=== PATIENT | female | born 1965 | race Caucasian/White ===

== ENCOUNTER 2017-04-14 11:04 | Emergency (ER) | payer BC ==
[~2017-04-14] VITALS: Ht 180.3 cm; Wt 114.5 kg
[2017-04-14] MEDS ORDERED: LEVOTAB10 (11:23)
[2017-04-14] MEDS ORDERED: OMEP40CA2 (11:23)
[2017-04-14] MEDS ORDERED: MONT10TA2 (11:23)
[2017-04-14] MEDS ORDERED: VITA400T2 PO (11:23)
[2017-04-14] MEDS ORDERED: VALS1TAB47 (11:23)
[2017-04-14] MEDS ORDERED: NADO20TA (11:23)
[2017-04-14] MEDS ORDERED: VITA10002 PO (11:23)
[2017-04-14] MEDS ORDERED: ATOR1TAB21 (11:23)
[2017-04-14 11:50] LABS: BASO % 0.6 % (0.0-1.0); EOS # 0.2 10^3/uL (0.0-0.50); EOS % 2.6 % (0.0-3.0); IMMATURE GRANULOCYTE % 0.4 % (0-0); LYMPH # 1.2 10^3/uL (1.5-4.5); MEAN CORPUSCULAR HEMOGLOBIN 26.7 pg (27.0-33.0); MEAN CORPUSCULAR HGB CONC 32.2 g/dl (32.0-36.5); MEAN CORPUSCULAR VOLUME 82.9 fl (80.0-96.0); MONO # 0.6 10^3/uL (0.0-0.8); MONO % 8.9 % (0.0-5.0); NEUTROPHILS # 4.9 10^3/uL (1.8-7.7); NEUTROPHILS % 70.5 % (36.0-66.0); PLATELET COUNT, AUTOMATED 335 10^3/uL (150-450); WHITE BLOOD COUNT 6.9 10^3/uL (4.0-10.0)
--- NOTE | 2017-04-14 12:08 | REP ---
Portable chest, 11:46 a.m., single AP view, patient sitting: Comparison is 03/26/2011. The lung weiss are clear. The cardiac size is normal. The larissa, mediastinum, and bony thorax are unremarkable. Impression: Negative portable chest. There is no interval change Signed by Alber Villanueva MD 04/14/2017 11:59 A
[2017-04-14 12:10] LABS: ANION GAP 7 MEQ/L (8-16); BLOOD UREA NITROGEN 11 MG/DL (7-18); CALCIUM LEVEL 8.8 MG/DL (8.5-10.1); CARBON DIOXIDE LEVEL 29 MEQ/L (21-32); CHLORIDE LEVEL 105 MEQ/L (98-107); CREATININE FOR GFR 0.77 MG/DL (0.55-1.02); GLOMERULAR FILTRATION RATE > 60.0 (>51); GLUCOSE, FASTING 102 MG/DL (70-105); POTASSIUM SERUM 3.9 MEQ/L (3.5-5.1); SODIUM LEVEL 141 MEQ/L (136-145)
[2017-04-14 14:01] VITALS: BP 152/66
--- NOTE | 2017-04-15 05:36 | ECGEPIP ---
Stationary ECG Study [facility] - ED Test Date: 2017-04-14 Pat Name: KARLO HUITRON Department: Room: - Gender: F Answering Service Operator: jose : 1965 Requested By: Alok Machado Order Number: [id number] Reading MD: Alok Martinez Measurements Intervals Omega Rate: 65 P: 30 IL: 192 QRS: 7 QRSD: 96 T: 10 QT: 415 QTc: 434 Interpretive Statements SINUS RHYTHM WITH FREQUENT VENTRICULAR PREMATURE COMPLEXES IN A BIGEMINAL PATTERN NO PRIORS Electronically Signed On 04-15-2017 5:36:30 EDT by Alok Martinez
== END 2017-04-14 14:06 | disposition home or self-care (01) ==
LOC: M ED 11:04
DX: I49.3 Ventricular premature depolarization (principal); T44.7X5A Adverse effect of beta-adrenoreceptor antagonists, initial encounter; I10 Essential (primary) hypertension; Y92.9 Unspecified place or not applicable; Y93.9 Activity, unspecified; Z79.899 Other long term (current) drug therapy; Z88.8 Allergy status to other drugs, medicaments and biological substances; Z88.6 Allergy status to analgesic agent

== ENCOUNTER → 2017-05-02 | Outpatient (CLI) | payer BC ==
[~2017-05-02] MED LIST: ATOR1TAB21; LEVOTAB10; MONT10TA2; NADO20TA; OMEP40CA2; VALS1TAB47; VITA10002 PO; VITA400T2 PO
== END ==
LOC: M LAB 12:05
PROVIDERS: ATTEND Internal Medicine Endocrinology, Diabetes & Metabolism
DX: E04.0 Nontoxic diffuse goiter (principal)

== ENCOUNTER → 2018-10-12 | Outpatient (CLI) | payer BC ==
[~2018-10-12] MED LIST changes: -ATOR1TAB21; +ATOR1TAB21 PO; +CVS400CA PO; +FAMO40TA3 PO; -LEVOTAB10; +LEVOTAB10 PO; +LOSA100T50 PO; -MONT10TA2; +MONT10TA2 PO; -OMEP40CA2; +OMEP40CA2 PO; +PREV4POW PO; -VALS1TAB47; +VALS1TAB67; +VITA500T3 PO
--- NOTE | 2018-10-12 11:26 | REP ---
RIGHT QUADRANT SONOGRAPHY: HISTORY: Right upper quadrant pain times 2 months. The patient status post cholecystectomy in 2010. Comparison sonography March 26, 2011. FINDINGS: Scanning through the right upper quadrant of the abdomen demonstrates increased hepatic sonography and decreased insonation consistent with fatty infiltration similar to the prior study. No focal liver lesion is seen. Gallbladder is surgically absent. No pancreatic abnormality is seen. Common bile duct is normal measuring 0.3 cm in greatest diameter. There is an extrarenal pelvis configuration to the right kidney which is unchanged from the 2011 study. No other abnormality. IMPRESSION: Status post cholecystectomy. Fatty infiltration of the liver. Otherwise negative. Electronically Signed by Destin Paige MD 10/12/2018 01:36 P
== END ==
LOC: M LRY 08:08
PROVIDERS: ATTEND Internal Medicine Gastroenterology
DX: K76.0 Fatty (change of) liver, not elsewhere classified (principal); Z90.49 Acquired absence of other specified parts of digestive tract

== ENCOUNTER 2018-11-02 09:53 | Day surgery (SDC) | payer BC ==
[~2018-11-02] VITALS: Ht 180.3 cm; Wt 111.0 kg
[~2018-11-02 09:53] MED LIST changes: +NS 1,000 ML IV ONE
[2018-11-02] MEDS ORDERED: PROPOFOL 200 MG/20 ML VIAL As Ordered ONE (11:46)
[2018-11-02] MEDS ORDERED: LIDOCAINE 2% INJ 100 MG/5 ML SDV (FOR ANES.) As Ordered ONE (11:47)
[2018-11-02] MEDS ORDERED: fentaNYL 100 MCG/2 ML INJECTION (J3010) As Ordered ONE (11:55)
--- NOTE | 2018-11-02 12:47 | ROOR ---
Patient Name: Mireya Chowdhury Procedure Date: 11/02/2018 11:53 AM Date of : 1965 Age: 53 Room: [facility] Gender: Female Note Status: Finalized Procedure: Upper GI endoscopy Indications: Abdominal pain in the right upper quadrant, Dyspepsia, Heartburn Providers: Luís Bland MD Referring MD: PATTI KIRAN Requesting Provider: Medicines: Monitored Anesthesia Care Complications: No immediate complications. Procedure: Pre-Anesthesia Assessment: - Prior to the procedure, a History and Physical was performed, and patient medications and allergies were reviewed. The patient is competent. The risks and benefits of the procedure and the sedation options and risks were discussed with the patient. All questions were answered and informed consent was obtained. Patient identification and proposed procedure were verified by the physician, the nurse and the anesthesiologist in the procedure room. Mental Status Examination: alert and oriented. Airway Examination: normal oropharyngeal airway and neck mobility. Respiratory Examination: clear to auscultation. CV Examination: normal. Prophylactic Antibiotics: The patient does not require prophylactic antibiotics. Prior Anticoagulants: The patient has taken no previous anticoagulant or antiplatelet agents. ASA Grade Assessment: II - A patient with mild systemic disease. After reviewing the risks and benefits, the patient was deemed in satisfactory condition to undergo the procedure. The anesthesia plan was to use moderate sedation / analgesia (conscious sedation). Immediately prior to administration of medications, the patient was re-assessed for adequacy to receive sedatives. The heart rate, respiratory rate, oxygen saturations, blood pressure, adequacy of pulmonary ventilation, and response to care were monitored throughout the procedure. The physical status of the patient was re-assessed after the procedure. The Endoscope was introduced through the mouth, and advanced to the second part of duodenum. The upper GI endoscopy was accomplished without difficulty. The patient tolerated the procedure well. Findings: The examined esophagus was normal. The Z-line was regular and was found 41 cm from the incisors. Patchy mild inflammation characterized by congestion (edema), erythema and granularity was found in the gastric antrum. Biopsies were taken with a cold forceps for Helicobacter pylori testing. Biopsies were taken with a cold forceps for histology. Verification of patient identification for the specimen was done by the physician and nurse using the patient's name, date and medical record number. Multiple 8 mm sessile polyps with no bleeding and no stigmata of recent bleeding were found in the gastric fundus and in the gastric body. Biopsies were taken with a cold forceps for histology. The duodenal bulb and second portion of the duodenum were normal. Biopsies for histology were taken with a cold forceps for evaluation of celiac disease. Impression: - Normal esophagus. - Z-line regular, 41 cm from the incisors. - Gastritis. Biopsied. - Multiple gastric polyps. Biopsied. - Normal duodenal bulb and second portion of the duodenum. Biopsied. Recommendation: - Patient has a contact number available for emergencies. The signs and symptoms of potential delayed complications were discussed with the patient. Return to normal activities tomorrow. Written discharge instructions were provided to the patient. - Resume previous diet. - Continue present medications. - Await pathology results. - Based on the biopsy results you will receive a phone call from GI clinic in 2-3 weeks to review the pathology results AND/OR your results will be faxed to your Primary care physician. - Return to primary care physician. Luís Bland MD Luís Bland MD 11/02/2018 12:46:58 PM Electronically signed by Luís Bland MD Number of Addenda: 0 Note Initiated On: 11/02/2018 11:53 AM Estimated Blood Loss: Estimated blood loss was minimal.
--- NOTE | 2018-11-02 12:49 | ROOR ---
Patient Name: Mireya Chowdhury Procedure Date: 11/02/2018 11:54 AM Date of : 1965 Age: 53 Room: [facility] Gender: Female Note Status: Finalized Procedure: Colonoscopy Indications: Screening for colorectal malignant neoplasm Providers: Luís Bland MD Referring MD: PATTI KIRAN Requesting Provider: Medicines: Monitored Anesthesia Care Complications: No immediate complications. Procedure: Pre-Anesthesia Assessment: - Prior to the procedure, a History and Physical was performed, and patient medications and allergies were reviewed. The patient is competent. The risks and benefits of the procedure and the sedation options and risks were discussed with the patient. All questions were answered and informed consent was obtained. Patient identification and proposed procedure were verified by the physician, the nurse and the anesthesiologist in the procedure room. Mental Status Examination: alert and oriented. Airway Examination: normal oropharyngeal airway and neck mobility. Respiratory Examination: clear to auscultation. CV Examination: normal. Prophylactic Antibiotics: The patient does not require prophylactic antibiotics. Prior Anticoagulants: The patient has taken no previous anticoagulant or antiplatelet agents. ASA Grade Assessment: II - A patient with mild systemic disease. After reviewing the risks and benefits, the patient was deemed in satisfactory condition to undergo the procedure. The anesthesia plan was to use monitored anesthesia care (MAC). Immediately prior to administration of medications, the patient was re-assessed for adequacy to receive sedatives. The heart rate, respiratory rate, oxygen saturations, blood pressure, adequacy of pulmonary ventilation, and response to care were monitored throughout the procedure. The physical status of the patient was re-assessed after the procedure. The Colonoscope was introduced through the anus and advanced to the terminal ileum, with identification of the appendiceal orifice and IC valve. The colonoscopy was performed without difficulty. The patient tolerated the procedure well. The quality of the bowel preparation was good. The terminal ileum, ileocecal valve, appendiceal orifice, and rectum were photographed. Scope insertion time was 4 minutes. Scope withdrawal time was 8 minutes. The total duration of the procedure was 12 minutes. Findings: The perianal and digital rectal examinations were normal. The terminal ileum appeared normal. Non-bleeding external and internal hemorrhoids were found during retroflexion. The hemorrhoids were medium-sized. No other significant abnormalities were identified in a careful examination of the remainder of the colon. Impression: - The examined portion of the ileum was normal. - Non-bleeding external and internal hemorrhoids. - No specimens collected. Recommendation: - Patient has a contact number available for emergencies. The signs and symptoms of potential delayed complications were discussed with the patient. Return to normal activities tomorrow. Written discharge instructions were provided to the patient. - Resume previous diet. - Continue present medications. - Repeat colonoscopy in 10 years for screening purposes. - Return to primary care physician. Luís Bland MD Luís Bland MD 11/02/2018 12:48:51 PM Electronically signed by Luís Bland MD Number of Addenda: 0 Note Initiated On: 11/02/2018 11:54 AM Estimated Blood Loss: Estimated blood loss: none.
[2018-11-02 13:00] VITALS: BP 125/66
== END 2018-11-02 13:29 | disposition home or self-care (01) ==
LOC: M OPP 09:53
PROVIDERS: ATTEND Internal Medicine Gastroenterology
DX: K64.8 Other hemorrhoids (principal); K29.70 Gastritis, unspecified, without bleeding; R10.11 Right upper quadrant pain; R10.13 Epigastric pain; R12 Heartburn; Z12.11 Encounter for screening for malignant neoplasm of colon
CPT/HCPCS: 43239; 45378; 88305; J3010

== ENCOUNTER → 2019-01-02 | Outpatient (CLI) | payer BC ==
[~2019-01-02] MED LIST changes: +LEVO75TA4 PO; -NS 1,000 ML IV ONE
[2019-01-02 20:21] LABS: FREE T4 1.07 NG/DL (0.76-1.46); THYROID STIMULATING HORMONE 0.611 uIU/ML (0.358-3.740)
== END ==
LOC: M LRY 15:36
PROVIDERS: ATTEND Internal Medicine Endocrinology, Diabetes & Metabolism
DX: E06.3 Autoimmune thyroiditis (principal)

== ENCOUNTER 2019-01-18 12:37 | Day surgery (SDC) | payer BC ==
[~2019-01-18] VITALS: Ht 180.3 cm; Wt 112.9 kg
[~2019-01-18 12:37] MED LIST changes: +CYAN100049 PO; +CYAN500T8 PO; +NS 1,000 ML IV ONE; -VITA10002 PO; -VITA500T3 PO
[2019-01-18] MEDS ORDERED: fentaNYL 100 MCG/2 ML INJECTION (J3010) As Ordered ONE (13:34)
[2019-01-18] MEDS ORDERED: LIDOCAINE 2% INJ 100 MG/5 ML SDV (FOR ANES.) As Ordered ONE (13:34)
[2019-01-18] MEDS ORDERED: PROPOFOL 200 MG/20 ML VIAL As Ordered ONE ×2 (13:34→14:18)
--- NOTE | 2019-01-18 14:41 | ROOR ---
Patient Name: Mireya Chowdhury Procedure Date: 01/18/2019 1:50 PM Date of : 1965 Age: 53 Room: [facility] Gender: Female Note Status: Finalized Procedure: Upper GI endoscopy Indications: Surveillance for malignancy due to personal history of premalignant condition, Follow-up of gastric polyps Providers: Luís Bland MD Referring MD: PATTI KIRAN Requesting Provider: Medicines: Monitored Anesthesia Care Complications: No immediate complications. Procedure: Pre-Anesthesia Assessment: - Prior to the procedure, a History and Physical was performed, and patient medications and allergies were reviewed. The patient is competent. The risks and benefits of the procedure and the sedation options and risks were discussed with the patient. All questions were answered and informed consent was obtained. Patient identification and proposed procedure were verified by the physician, the nurse and the anesthesiologist in the procedure room. Mental Status Examination: alert and oriented. Airway Examination: normal oropharyngeal airway and neck mobility. Respiratory Examination: clear to auscultation. CV Examination: normal. Prophylactic Antibiotics: The patient does not require prophylactic antibiotics. Prior Anticoagulants: The patient has taken no previous anticoagulant or antiplatelet agents. ASA Grade Assessment: II - A patient with mild systemic disease. After reviewing the risks and benefits, the patient was deemed in satisfactory condition to undergo the procedure. The anesthesia plan was to use monitored anesthesia care (MAC). Immediately prior to administration of medications, the patient was re-assessed for adequacy to receive sedatives. The heart rate, respiratory rate, oxygen saturations, blood pressure, adequacy of pulmonary ventilation, and response to care were monitored throughout the procedure. The physical status of the patient was re-assessed after the procedure. The Endoscope was introduced through the mouth, and advanced to the second part of duodenum. Findings: The examined esophagus was normal. Multiple 8 to 15 mm sessile polyps with no bleeding and no stigmata of recent bleeding were found in the gastric fundus, in the gastric body and in the gastric antrum. These polyps were removed with a cold snare. Resection and retrieval were complete. Verification of patient identification for the specimen was done by the physician and nurse using the patient's name, date and medical record number. Estimated blood loss was minimal. The duodenal bulb and second portion of the duodenum were normal. Impression: - Normal esophagus. - Multiple gastric polyps. Resected and retrieved. - Normal duodenal bulb and second portion of the duodenum. Recommendation: - Patient has a contact number available for emergencies. The signs and symptoms of potential delayed complications were discussed with the patient. Return to normal activities tomorrow. Written discharge instructions were provided to the patient. - Resume previous diet. - Continue present medications. - Await pathology results. - Repeat upper endoscopy for surveillance based on pathology results. - Telephone GI clinic for pathology results in 2 weeks. - Return to primary care physician. Luís Bland MD Luís Bland MD 01/18/2019 2:40:39 PM Electronically signed by Luís Bland MD Number of Addenda: 0 Note Initiated On: 01/18/2019 1:50 PM Estimated Blood Loss: Estimated blood loss was minimal.
[2019-01-18 15:00] VITALS: BP 135/89
== END 2019-01-18 15:00 | disposition home or self-care (01) ==
LOC: M OPP 12:37
PROVIDERS: ATTEND Internal Medicine Gastroenterology
DX: K31.7 Polyp of stomach and duodenum (principal); Z87.19 Personal history of other diseases of the digestive system
CPT/HCPCS: 43251; 88305; J3010

== ENCOUNTER → 2019-04-03 | Outpatient (CLI) | payer BC ==
[~2019-04-03] MED LIST changes: -NS 1,000 ML IV ONE
[2019-04-03 20:53] LABS: FREE T4 0.96 NG/DL (0.76-1.46); THYROID STIMULATING HORMONE 6.37 uIU/ML (0.358-3.740)
== END ==
LOC: M LRY 16:03
PROVIDERS: ATTEND Internal Medicine Endocrinology, Diabetes & Metabolism
DX: E06.3 Autoimmune thyroiditis (principal)

== ENCOUNTER → 2019-06-10 | Outpatient (CLI) | payer BC ==
[~2019-06-10] MED LIST changes: -OMEP40CA2 PO; +OMEP40CA97 PO
[2019-06-10 20:33] LABS: FREE T4 1.17 NG/DL (0.76-1.46); THYROID STIMULATING HORMONE 2.67 uIU/ML (0.358-3.740)
== END ==
LOC: M LRY 17:22
PROVIDERS: ATTEND Internal Medicine Endocrinology, Diabetes & Metabolism
DX: E06.3 Autoimmune thyroiditis (principal)

== ENCOUNTER → 2019-10-10 | Outpatient (CLI) | payer BC ==
[~2019-10-10] MED LIST changes: -MONT10TA2 PO; +MONT10TA4 PO
[2019-10-10 20:17] LABS: FREE T4 1.05 NG/DL (0.76-1.46); THYROID STIMULATING HORMONE 2.26 uIU/ML (0.358-3.740)
== END ==
LOC: M LRY 16:09
PROVIDERS: ATTEND Internal Medicine Endocrinology, Diabetes & Metabolism
DX: E06.3 Autoimmune thyroiditis (principal)

== ENCOUNTER → 2020-04-20 | Outpatient (CLI) | payer BC ==
[2020-04-20 20:14] LABS: FREE T4 1.06 NG/DL (0.76-1.46); RHEUMATOID FACTOR QUANT < 10.0 IU/ML (<15.0)
[2020-04-22 14:09] LABS: ANTINUCLEAR ANTIBODIES DIRECT Negative (Negative)
== END ==
LOC: M WUC 16:51
PROVIDERS: ATTEND Internal Medicine Endocrinology, Diabetes & Metabolism
DX: E06.3 Autoimmune thyroiditis (principal)

== ENCOUNTER → 2020-09-08 | Outpatient (CLI) | payer BC ==
[~2020-09-08] MED LIST changes: +CYAN500T14 PO; -CYAN500T8 PO; +MONT10TA10 PO; -MONT10TA4 PO
== END ==
LOC: M WUC 15:15
PROVIDERS: ATTEND Internal Medicine Endocrinology, Diabetes & Metabolism
DX: E06.3 Autoimmune thyroiditis (principal)

== ENCOUNTER 2020-12-16 17:04 | Emergency (ER) | payer OTHER, BC ==
[~2020-12-16] VITALS: Ht 182.9 cm; Wt 128.6 kg
[2020-12-16 17:04] VITALS: BP 165/81
--- NOTE | 2020-12-16 17:31 | REP ---
INDICATION: fall injury COMPARISON: None. TECHNIQUE: Three views right shoulder. FINDINGS: There is no evidence of acute fracture, dislocation, or intrinsic bone disease.There is mild spurring at the acromioclavicular joint. IMPRESSION: No fracture or dislocation. <Electronically signed by Alber Wilder > 12/16/20 [id number]
--- NOTE | 2020-12-16 17:34 | REP ---
INDICATION: fall injury. COMPARISON: None. TECHNIQUE: Four views right ribs. FINDINGS: The right ribs demonstrate no fracture or bone lesion. IMPRESSION: No evidence of right rib fracture. <Electronically signed by Alber Wilder > 12/16/20 1848
[2020-12-16] MEDS ORDERED: LIDOCAINE 5% (LIDODERM) PATCH TD ONE (17:55)
[2020-12-16] MEDS ORDERED: ACETAMINOPHEN 325 MG TAB PO ONE (17:55)
[2020-12-16] MEDS ORDERED: HYDR-3713 PO (18:16)
[2020-12-16] MEDS ORDERED: LIDO1PAD TOP (18:16)
[2020-12-16] MEDS ORDERED: **NOTE PATIENT COMMENT** MISC XX SCH (21:00)
== END 2020-12-16 18:30 | disposition home or self-care (01) ==
LOC: M ED 17:04
DX: S20.211A Contusion of right front wall of thorax, initial encounter (principal); M25.511 Pain in right shoulder; W10.1XXA Fall (on)(from) sidewalk curb, initial encounter; Y92.480 Sidewalk as the place of occurrence of the external cause; Y93.89 Activity, other specified; Y99.0 Civilian activity done for income or pay; I10 Essential (primary) hypertension; K21.9 Gastro-esophageal reflux disease without esophagitis; E03.9 Hypothyroidism, unspecified; Z88.8 Allergy status to other drugs, medicaments and biological substances; Z79.899 Other long term (current) drug therapy; Z79.890 Hormone replacement therapy

== ENCOUNTER → 2021-01-26 | Outpatient (REF) | payer BC ==
[~2021-01-26] MED LIST changes: +HYDR-3713 PO; +LIDO1PAD TOP; +OMEP40CA4 PO; -OMEP40CA97 PO
== END ==
LOC: M LAB REF 21:43
PROVIDERS: ATTEND Nurse Practitioner Family
DX: J02.9 Acute pharyngitis, unspecified (principal)

== ENCOUNTER → 2021-07-26 | Outpatient (CLI) | payer BC ==
[~2021-07-26] MED LIST changes: +LOSA100T45 PO; -LOSA100T50 PO; -MONT10TA10 PO; +MONT10TA97 PO
== END ==
LOC: M WHC 10:06
PROVIDERS: ATTEND Nurse Practitioner Adult Health
DX: Z12.31 Encounter for screening mammogram for malignant neoplasm of breast (principal)

== ENCOUNTER → 2021-09-08 | Outpatient (CLI) | payer BC | LOC: M LAB 17:51 | PROVIDERS: ATTEND Internal Medicine Endocrinology, Diabetes & Metabolism | DX: E06.3 Autoimmune thyroiditis (principal) ==

== ENCOUNTER → 2021-12-17 | Outpatient (CLI) | payer BC | LOC: M RAD 14:52 | PROVIDERS: ATTEND Physician Assistant | DX: R22.42 Localized swelling, mass and lump, left lower limb (principal) ==

== ENCOUNTER → 2022-01-31 | Outpatient (CLI) | payer BC | LOC: M WUC 15:50 | PROVIDERS: ATTEND Physician Assistant | DX: M54.12 Radiculopathy, cervical region (principal) ==

== ENCOUNTER → 2022-04-15 | Outpatient (CLI) | payer BC | LOC: M WUC 15:43 | PROVIDERS: ATTEND Internal Medicine Endocrinology, Diabetes & Metabolism | DX: E06.3 Autoimmune thyroiditis (principal) ==

== ENCOUNTER → 2022-08-08 | Outpatient (CLI) | payer BC | LOC: M WUC 10:50 | PROVIDERS: ATTEND Physician Assistant | DX: M17.11 Unilateral primary osteoarthritis, right knee (principal) ==

== ENCOUNTER → 2022-08-22 | Outpatient (CLI) | payer BC | LOC: M WHC 08:04 | PROVIDERS: ATTEND Nurse Practitioner Family | DX: Z12.31 Encounter for screening mammogram for malignant neoplasm of breast (principal); Z80.41 Family history of malignant neoplasm of ovary; Z80.3 Family history of malignant neoplasm of breast ==

== ENCOUNTER 2022-11-10 10:08 | Day surgery (SDC) | payer BC ==
[~2022-11-10] VITALS: Ht 180.3 cm; Wt 127.0 kg
[~2022-11-10 10:08] MED LIST changes: +B-12100010 PO; +CHOL4POW26 PO; +ESOM40CA35 PO; +LIVA4TAB PO; -LOSA100T45 PO; +LOSA100T46 PO; +NS 1,000 ML IV ONE; +SYNT112T2 PO; +VENTAER INH; +VITA100093 PO
[2022-11-10] MEDS ORDERED: propofoL 500 MG/50 ML VIAL As Ordered ONE (11:50)
[2022-11-10] MEDS ORDERED: fentaNYL 100 MCG/2 ML INJECTION As Ordered ONE (11:50)
[2022-11-10] MEDS ORDERED: LIDOCAINE 2% 100MG/5ML SDV (FOR ANES.) As Ordered ONE (11:50)
[2022-11-10 13:07] VITALS: BP 168/89
[2022-11-10] MEDS ORDERED: ONDANSETRON 4MG 2ML VIAL As Ordered ONE (14:10)
== END 2022-11-10 13:09 | disposition home or self-care (01) ==
LOC: M OPP 10:08
PROVIDERS: ATTEND Internal Medicine Gastroenterology
DX: Z12.11 Encounter for screening for malignant neoplasm of colon (principal); Z86.010 Personal history of colon polyps; K64.4 Residual hemorrhoidal skin tags; K64.8 Other hemorrhoids; K57.30 Diverticulosis of large intestine without perforation or abscess without bleeding; K29.70 Gastritis, unspecified, without bleeding; Z79.51 Long term (current) use of inhaled steroids; Z79.899 Other long term (current) drug therapy; Z88.8 Allergy status to other drugs, medicaments and biological substances
CPT/HCPCS: 43239; 45378; 88305; J2405; J3010

== ENCOUNTER → 2023-01-17 | Outpatient (CLI) | payer BC ==
[~2023-01-17] MED LIST changes: -NS 1,000 ML IV ONE
== END ==
LOC: M CARPUL 10:24
PROVIDERS: ATTEND Nurse Practitioner Family
DX: I10 Essential (primary) hypertension (principal); I49.3 Ventricular premature depolarization

== ENCOUNTER → 2023-03-06 | Outpatient (CLI) | payer BC | LOC: M LAB 12:46 | PROVIDERS: ATTEND Internal Medicine Endocrinology, Diabetes & Metabolism | DX: E06.3 Autoimmune thyroiditis (principal) ==